=== PATIENT | female | born 1950 | race Caucasian/White ===

== ENCOUNTER → 2017-05-18 | Outpatient (CLI) | payer MEDICARE, OTHER ==
--- NOTE | 2017-05-18 21:10 | Diagnostic Imaging Report ---
Bilateral screening mammogram 2D views with tomosynthesis The current study was also evaluated with a Computer Aided Detection (CAD) system. INDICATION: Screening. No current complaints stated on the questionnaire. COMPARISON: 03/29/2016. FINDINGS: The breasts are composed of scattered fibroglandular densities. There are occasional benign-appearing calcifications. Allowing for technique and positional differences, no suspicious change is seen. IMPRESSION: No significant change. ACR BI-RADS Category 2: Benign findings. Result letter will be mailed to the patient. Note: At least 10% of breast cancer is not imaged by mammography. Dictated by: Dictated on workstation # [id number]
== END ==
LOC: RAD 08:59
PROVIDERS: ATTEND Family Medicine
DX: Z12.31 Encounter for screening mammogram for malignant neoplasm of breast (principal)
CPT/HCPCS: 77067

== ENCOUNTER → 2018-05-27 | Outpatient (CLI) | payer MEDICARE, OTHER ==
--- NOTE | 2018-05-27 09:42 | Diagnostic Imaging Report ---
Indication: Routine screening. Comparison is made with prior mammogram from 05/18/2017 and 03/30/2016. 2-D and 3-D bilateral screening mammography was performed with CAD. Both breasts are heterogeneously dense, limiting the sensitivity of mammography. Nodular densities in the left breast appear to be stable and most consistent with benign etiology. No spiculated mass or malignant-appearing microcalcifications are seen. There are benign calcifications bilaterally. Axillae are unremarkable. Impression: BI-RADS category 2. No mammographic features suspicious for malignancy are identified. Dictated by: Dictated on workstation # [id number]
== END ==
LOC: RAD 08:00
PROVIDERS: ATTEND Family Medicine
DX: Z12.31 Encounter for screening mammogram for malignant neoplasm of breast (principal)
CPT/HCPCS: 77067

== ENCOUNTER → 2019-05-29 | Outpatient (CLI) | payer MEDICARE, OTHER ==
--- NOTE | 2019-05-29 12:22 | Diagnostic Imaging Report ---
INDICATION: Routine screening. Comparison is made with prior mammogram from 05/27/2018 and 05/18/2017. 2-D and 3-D bilateral screening mammography was performed with CAD. Both breasts are heterogeneously dense, limiting the sensitivity of mammography. Benign calcifications again noted bilaterally. The circumscribed nodule in the lower central left breast appears stable. No new mass or malignant appearing microcalcifications are seen. Axillae are unremarkable. IMPRESSION: BI-RADS Category 2 No mammographic features suspicious for malignancy are identified. ACR BI-RADS Category 2: Benign findings. Result letter will be mailed to the patient. Note: At least 10% of breast cancer is not imaged by mammography. Dictated by: Dictated on workstation # [id number]
== END ==
LOC: RAD 10:11
PROVIDERS: ATTEND Family Medicine
DX: Z12.31 Encounter for screening mammogram for malignant neoplasm of breast (principal)
CPT/HCPCS: 77067

== ENCOUNTER → 2020-06-06 | Outpatient (CLI) | payer MEDICARE, OTHER ==
--- NOTE | 2020-06-06 11:18 | Diagnostic Imaging Report ---
INDICATION: Routine screening. COMPARISON: 05/29/2019 and 05/27/2018. TECHNIQUE: 2D and 3D bilateral screening mammography was performed with CAD. FINDINGS: Both breasts remain heterogeneously dense, limiting the sensitivity of mammography. The fibronodular parenchymal pattern appears to be fairly stable. No spiculated mass or malignant appearing microcalcifications are seen. There are benign calcifications. The axillae are unremarkable. IMPRESSION: No mammographic features suspicious for malignancy are identified. ACR BI-RADS Category 2: Benign findings. Result letter will be mailed to the patient. Note: At least 10% of breast cancer is not imaged by mammography. Dictated by: Dictated on workstation # [id number]
== END ==
LOC: RAD 07:16
PROVIDERS: ATTEND Family Medicine
DX: Z12.31 Encounter for screening mammogram for malignant neoplasm of breast (principal)
CPT/HCPCS: 77063; 77067

== ENCOUNTER → 2021-06-09 | Outpatient (CLI) | payer MEDICARE, OTHER ==
--- NOTE | 2021-06-09 10:20 | Diagnostic Imaging Report ---
INDICATION: Routine screening. COMPARISON: 06/06/2020 and 05/29/2019. TECHNIQUE: 2D and 3D bilateral screening mammography was performed with CAD. FINDINGS: Both breasts are heterogeneously dense, limiting the sensitivity of mammography. The nodular densities appear stable. There are benign calcifications. No spiculated mass or malignant-appearing microcalcifications are seen. The axillae are unremarkable. IMPRESSION: No mammographic features suspicious for malignancy are identified. ACR BI-RADS Category 2: Benign findings. Result letter will be mailed to the patient. Note: At least 10% of breast cancer is not imaged by mammography. Dictated by: Dictated on workstation # [id number]
== END ==
LOC: RAD 09:15
PROVIDERS: ATTEND Family Medicine
DX: Z12.31 Encounter for screening mammogram for malignant neoplasm of breast (principal)
CPT/HCPCS: 77063; 77067

== ENCOUNTER → 2022-04-01 | Outpatient (CLI) | payer MEDICARE, OTHER ==
--- NOTE | 2022-04-01 11:11 | Diagnostic Imaging Report ---
INDICATION: Right hip pain 2 views of the right hip show no fracture, dislocation or other acute abnormalities. IMPRESSION: Negative right hip. Dictated by: Dictated on workstation # [id number]
--- NOTE | 2022-04-01 11:12 | Diagnostic Imaging Report ---
INDICATION: Back pain Lumbar spine AP and lateral views of lumbar spine shows normal vertebral body height and alignment. There is mild disc space narrowing at each level of lumbar spine. There are anterior osteophytes beginning to form. IMPRESSION: Minimal spondylosis. No acute abnormality seen. Dictated by: Dictated on workstation # [id number]
== END ==
LOC: RAD 10:00
DX: M25.551 Pain in right hip (principal); M54.50 Low back pain, unspecified
CPT/HCPCS: 72100; 73502

== ENCOUNTER → 2022-06-10 | Outpatient (CLI) | payer MEDICARE, OTHER ==
--- NOTE | 2022-06-10 13:14 | Diagnostic Imaging Report ---
EXAMINATION: 3D bilateral screening mammogram with CAD. COMPARISON: This study was compared to the prior exams of 06/09/2021, 06/06/2020, and 05/29/2019. PERSONAL HISTORY: At this time, there are no current complaints. FINDINGS: The fibroglandular tissue in both breasts is heterogeneously dense. This does limit the sensitivity of this exam. Overall, there does not appear to have been any significant change when compared to the prior study. No primary or secondary sign of malignancy is noted. IMPRESSION: There is no radiographic evidence for malignancy. ACR BI-RADS Category 1: Negative. Result letter will be mailed to the patient. Note: At least 10% of breast cancer is not imaged by mammography. Dictated by: Dictated on workstation # [id number]
== END ==
LOC: RAD 09:45
PROVIDERS: ATTEND Family Medicine
DX: Z12.31 Encounter for screening mammogram for malignant neoplasm of breast (principal)
CPT/HCPCS: 77063; 77067

== ENCOUNTER → 2023-03-17 | Outpatient (CLI) | payer MEDICARE, OTHER ==
[~2023-03-17] VITALS: Ht 162.5 cm; Wt 79.1 kg
[~2023-03-17] MED LIST: GLUC-219 PO; OMEP20TA56 PO; TELM80TA8 PO
== END | disposition home or self-care (01) ==
LOC: PREOP 06:17
PROVIDERS: ATTEND Surgery
DX: Z01.818 Encounter for other preprocedural examination (principal)

== ENCOUNTER 2023-03-26 09:42 | Emergency (ER) | payer MEDICARE, OTHER ==
[~2023-03-26] VITALS: Ht 162.5 cm; Wt 77.0 kg
[~2023-03-26 09:42] MED LIST changes: -ACHD5005 PO; -MELO15TA39 PO; -POLY17PO6 PO; -TIZA4CAP PO
[2023-03-26 09:55] VITALS: BP 139/89
--- NOTE | 2023-03-26 10:07 | ED Back Pain ---
General Stated Complaint: PAIN SHOT | RT HIP PAIN Allergies and Home Medications Allergies Coded Allergies: No Known Drug Allergies (Unverified , 03/17/23) Patient Home Medication List Glucosamine/D3/Boswellia Elizabet (Osteo Bi-Flex Tablet) 1,500 Mg-400 Unit-100 Mg Tablet, 1 EACH PO DAILY, (Reported) Entered as Reported by: Yue Neri on 03/17/23 1437 Omeprazole (Omeprazole) 20 Mg Tablet.dr, 20 MG PO DAILY, (Reported) Entered as Reported by: Yue Neri on 03/17/23 1437 Telmisartan (Telmisartan) Unknown Strength Tablet, Unknown Dose PO DAILY, (Repor meek) Entered as Reported by: Yue Neri on 03/17/23 1437 Past Goqzfuu-Zyfpzi-Irmhue Hx Seasonal Allergies Seasonal Allergies: No Past Medical History Surgeries: Yes (COLON RESECTION, CATARACT, BLADDER TIE UP AND RECTOCELE, CARPAL TUNNEL) Hysterectomy, Oophorectomy Respiratory: No Cardiac: Yes Hypertension Neurological: No Female Reproductive Disorders: Denies SHELF STOCKER History: Hysterectomy Sexually Transmitted Disease: No HIV/AIDS: No Genitourinary: No Gastrointestinal: Yes (LOOSE STOOLS ) Gastroesophageal Reflux, Polyps Musculoskeletal: Yes Arthritis, Chronic Back Pain Endocrine: No HEENT: Yes (GLASSAS, PARTIAL DENTURE) Loss of Vision: Bilateral Hearing Impairment: Denies Cancer: No Psychosocial: No Integumentary: No Blood Disorders: No Adverse Reaction/Blood Tranf: No Physical Exam Vital Signs Capillary Refill : Height, Weight, BMI Height: '" Weight: lbs. oz. kg; 29.95 BMI Method: Progress/Results/Core Measures Results/Orders My Orders Orders - DELONTE PINA DO Fentanyl Injection (Fentanyl Injection (03/26/23 10:15) Orphenadrine Inj (Ed Only) (Orphenadrine (03/26/23 10:15) Departure Impression Primary Impression: Chronic back pain Additional Impression: Chronic sciatica Disposition: HOME, SELF-CARE Condition: Stable Departure-Patient Inst. Decision time for Depature: 10:07 Referrals: VIOLA SCHRADER DO (PCP/Family) Primary Care Physician Patient Instructions: Sciatica ED, Chronic pain Add. Discharge Instructions: KEEP YOUR APPOINTMENT FOR MRI FOLLOW UP WITH DR. SCHRADER ON WEDNESDAY FOR FURTHER CARE Scripts Polyethylene Glycol 3350 (Miralax) 17 Gram Powd.pack 17 GM PO UD, #1 EACH MIX DIRECTED, THEN TAKE 1 DOSE EVERY 1-2 HOURS UNTIL YOU HAVE A BM, THEN USE ONCE A DAY EVERY DAY Prov: DELONTE PINA DO 03/26/23 Meloxicam (Meloxicam) 15 Mg Tablet 15 MG PO DAILY, #10 TAB Prov: DELONTE PINA DO 03/26/23 Hydrocodone/Acetaminophen (Hydrocodone-Acetamin 5-325 mg) 5 Mg-325 Mg Tablet 1 EACH PO Q4-6 HOURS PRN for PAIN, #20 TAB Prov: DELONTE PINA DO 03/26/23 Tizanidine HCl (Zanaflex) 4 Mg Capsule 4 MG PO TID for Spasms, #15 CAP Prov: DELONTE PINA DO 03/26/23 DELONTE PINA DO Mar 26, 2023 10:07
[2023-03-26] MEDS ORDERED: TIZA4CAP PO (10:08)
[2023-03-26] MEDS ORDERED: POLY17PO6 PO (10:08)
[2023-03-26] MEDS ORDERED: ACHD5005 PO (10:08)
[2023-03-26] MEDS ORDERED: MELO15TA39 PO (10:08)
[2023-03-26] MEDS ORDERED: fentaNYL INJECTION 100 MCG/2 ML VIAL IM ONE (10:15)
[2023-03-26] MEDS ORDERED: ORPHENADRINE 60 MG/2 ML AMP (ED ONLY) IM ONE (10:15)
== END 2023-03-26 10:29 | disposition home or self-care (01) ==
LOC: EDUNIT# 09:42 → ER 09:45
DX: G89.29 Other chronic pain (principal); M54.9 Dorsalgia, unspecified; M54.31 Sciatica, right side
CPT/HCPCS: 99284

== ENCOUNTER → 2023-03-26 | Outpatient (CLI) | payer MEDICARE, OTHER ==
[~2023-03-26] MED LIST changes: +ACHD5005 PO; +MELO15TA39 PO; +POLY17PO6 PO; +TIZA4CAP PO
--- NOTE | 2023-03-26 12:38 | Diagnostic Imaging Report ---
CLINICAL INDICATION: Patient is having severe low back pain for just a couple of days now. No known injury. EXAM: MRI of the lumbar spine performed without contrast. Sequences include sagittal T2, sagittal T1, sagittal T2 fat-sat, and axial T2. COMPARISON: X-ray of the lumbar spine dated 04/01/2022. FINDINGS: There is no acute lumbar spine fracture or dislocation. There are Modic type I degenerative signal changes involving the L4-L5 endplates. There are bilateral vertebral spurs involving the lumbar spine. There is lower lumbar spine facet arthropathy. There is no significant paraspinal soft tissue abnormality. The visualized portions of the distal thoracic spinal cord, conus medullaris, and cauda equina nerve roots are unremarkable. The conus medullaris tip is seen at the L1-L2 intervertebral level. L1-L2: There is a diffuse disk bulge and ocdy-cy-npjigman bilateral facet arthropathy. There is jkuw-ty-mljujbyj central canal stenosis. There is no significant neural foramen narrowing. L2-L3: There is a diffuse disk bulge with moderate bilateral facet arthropathy/hypertrophy and ligamentum flavum buckling. There is okiaiuhi-dl-wpeghg central canal stenosis. There is no significant neural foramen narrowing. L3-L4: There is a mild diffuse disk bulge and moderate bilateral facet arthropathy/hypertrophy. There is ubqnwofb-rj-eiqglh central canal stenosis. There is no significant neural foramen narrowing. L4-L5: There is a diffuse disk bulge with bfxmptnc-ut-xawnzz loss of disk space height. There is a superimposed moderate-sized central posterior disk fusion/herniation. There is severe central canal stenosis with complete effacement of the thecal sac. There is severe bilateral facet arthropathy and ligamentum flavum buckling. There is mild left neural foramen narrowing and no significant right neural foramen narrowing. There is no significant central canal stenosis. IMPRESSION: 1: There is no acute lumbar spine fracture or dislocation. 2: There is qiwkvkim-fx-jwncwg multilevel lumbar spine degenerative disk disease which is described above. 3: There is an L4-L5 diffuse disk bulge with superimposed posterior disk extrusion/herniation with severe central canal stenosis. Dictated by: Dictated on workstation # [id number]
== END ==
LOC: RAD 09:20
PROVIDERS: ATTEND Family Medicine
DX: M51.36 Other intervertebral disc degeneration, lumbar region (principal); M51.26 Other intervertebral disc displacement, lumbar region; M48.061 Spinal stenosis, lumbar region without neurogenic claudication
CPT/HCPCS: 72148

== ENCOUNTER 2023-03-30 09:46 | Day surgery (SDC) | payer MEDICARE, OTHER ==
[~2023-03-30] VITALS: Ht 162.5 cm; Wt 77.0 kg
[~2023-03-30 09:46] MED LIST changes: +ACHD5005 PO; +MELO15TA39 PO; +POLY17PO6 PO; +TIZA4CAP PO
[2023-03-30] MEDS ORDERED: LACTATED RINGERS 1,000 ML 1,000 ML IV STA (09:48)
--- NOTE | 2023-03-30 10:07 | Progress Note-Pre Operative ---
Pre-Operative Progress Note Date H&P Reviewed: Mar 30, 2023 Time H&P Reviewed: 10:07 History & Physical: H&P Reviewed, Patient Examed, No changes noted Pre-Operative Diagnosis: hx of polyps ADAMARIS MEJIA DO Mar 30, 2023 10:07
--- NOTE | 2023-03-30 11:06 | Progress Note-Post Operative ---
Post-Operative Progess Note Surgeon (s)/Aesthetics Instructor (s) Surgeon ADAMARIS MEJIA DO Aesthetics Instructor: none Pre-Operative Diagnosis hx of polyps Post-Operative Diagnosis colon polyp Procedure & Operative Findings Date of Procedure 03/30/23 Procedure Performed/Findings colonoscopy with hot biopsy polypectomy x 1 Anesthesia Type per [facility] UNDERWRITER Estimated Blood Loss Estimated blood loss (mL): none Specimens/Packing Specimens Removed descending colon polyp ADAMARIS MEJIA DO Mar 30, 2023 11:06
--- NOTE | 2023-03-30 11:07 | Discharge Inst-Simple/Standard ---
Discharge Inst-Standard Patient Instructions/Follow Up Plan of Care/Instructions/FU: shayy 2 weeks Activity as Tolerated: Yes Discharge Diet: Regular Diet ADAMARIS MEJIA DO Mar 30, 2023 11:07
[2023-03-30 11:10] VITALS: BP 100/49
[2023-03-30 11:15] VITALS: BP 108/50
[2023-03-30 11:20] VITALS: BP 112/54
[2023-03-30 11:50] VITALS: BP 112/54
--- NOTE | 2023-03-30 13:31 | Anesthesia-General Post-Op ---
MAC Patient Condition Mental Status/LOC: Same as Preop Cardiovascular: Satisfactory Nausea/Vomiting: Absent Respiratory: Satisfactory Pain: Controlled Complications: Absent Post Op Complications Complications None Follow Up Care/Instructions Patient Instructions None needed. Anesthesiology Discharge Order Discharge Order Patient is doing well, no complaints, stable vital signs, no apparent adverse anesthesia problems. No complications reported per nursing. CALE LAO CRNA Mar 30, 2023 13:31
--- NOTE | 2023-03-30 17:55 | OPERATIVE REPORT ---
DATE OF SERVICE: 03/30/2023 PREOPERATIVE DIAGNOSIS: History of polyps. POSTOPERATIVE DIAGNOSES: Descending colon polyp. PROCEDURE: Colonoscopy with hot biopsy polypectomy x1. SURGEON: Adamaris Paul DO ANESTHESIA: Per TRUCK TECHNICIAN. ESTIMATED BLOOD LOSS: None. COMPLICATIONS: None. INDICATIONS: The patient is a 72-year-old female with a need for colonoscopy for history of polyps. She understands risks and benefits of procedure and wished to proceed. She has a history of sigmoid resection due to large polyp a procedure. DESCRIPTION OF PROCEDURE: The patient was taken to the endoscopy suite, placed in left lateral recumbent position. Timeout was performed. Digital rectal exam was performed. No palpable polyps, masses or ulcerations. Scope was inserted in the rectum, advanced all the way to the cecum with minimal difficulty. Prep was adequate. Scope was slowly retracted back with irrigation and suction. Scope was slowly retracted back. No polyps, masses or ulcerations within the cecum, ascending, transverse colon. In the descending colon, small polyp was present, which hot biopsy polypectomy was performed. Scope was then continuously retracted back into the sigmoid colon. Also, noting an anastomosis. Scope was then continuously retracted back in the rectum where it was also retroflexed noting no other pathology. Scope was returned to its normal position, slowly withdrawn until completely removed. The patient tolerated the procedure well with no complications, taken to recovery room in stable condition. RECOMMENDATIONS: The patient will repeat colonoscopy in 5 years if benefits outweigh the risks. Job ID: [id number] DocumentID: [id number] Dictated Date: 03/30/2023 11:11:11 Waterworks Operator Date: 03/30/2023 17:54:00 Dictated By: ADAMARIS PAUL DO
== END 2023-03-30 11:50 | disposition home or self-care (01) ==
LOC: ENDO 09:46
PROVIDERS: ATTEND Surgery
DX: Z12.11 Encounter for screening for malignant neoplasm of colon (principal); K63.5 Polyp of colon; K21.9 Gastro-esophageal reflux disease without esophagitis; Z28.310 Unvaccinated for COVID-19

== ENCOUNTER → 2023-06-21 | Outpatient (CLI) | payer MEDICARE, OTHER ==
--- NOTE | 2023-06-22 15:51 | Diagnostic Imaging Report ---
INDICATION: Routine screening. COMPARISON: 06/10/2022 and 06/09/2021. TECHNIQUE: 2D and 3D bilateral screening mammography was performed with CAD. FINDINGS: Both breasts are heterogeneously dense, limiting the sensitivity of mammography. The nodular density in the upper right breast is stable. Nodular densities in the left breast appear stable as well. There are scattered benign calcifications. No malignant-appearing microcalcifications are identified. The axillae are unremarkable. IMPRESSION: No mammographic features suspicious for malignancy are identified. ACR BI-RADS Category 2: Benign findings. Result letter will be mailed to the patient. Note: At least 10% of breast cancer is not imaged by mammography. Dictated by: Dictated on workstation # [id number]
== END ==
LOC: RAD 10:45
PROVIDERS: ATTEND Family Medicine
DX: Z12.31 Encounter for screening mammogram for malignant neoplasm of breast (principal)
CPT/HCPCS: 77063; 77067